=== PATIENT | male | born 1995 | race Hispanic/Latino ===

== ENCOUNTER 2024-11-28 15:57 | Inpatient (IN) | payer SELFPAY ==
[2024-11-28 17:06] LABS: #Basophils 0.06 10x3/uL (0.0-0.2); #Eosinophils 0.08 10x3/uL (0.0-0.7); #Monocytes 0.26 10x3/uL (0.11-0.59); #Neutrophils 6.18 10x3/uL (1.40-6.50); %Basophils 0.9 % (0.0-1.0); %Eosinophils 1.1 % (0.0-10.0); %Lymphocytes 5.8 % (21.0-51.0); %Monocytes 3.7 % (0.0-10.0); %Neutrophils 88.1 % (42.0-75.0); Hematocrit 43.1 % (42.0-52.0); Hemoglobin 14.5 g/dL (14.0-18.0); Mean Corpuscular Hemoglobin 27.5 pg (27.0-31.0); Mean Corpuscular Volume 81.6 fL (78.0-98.0); Platelet Count 124 10x3/uL (130-400); Red Blood Cell (RBC) Count 5.28 mill/uL (4.70-6.10); White Blood Cell (WBC) Count 7.02 10x3/uL (4.8-10.8)
[2024-11-28 17:24] LABS: ALT (SGPT) 160 U/L (Less than 45); AST (SGOT) 247 U/L (11-34); Albumin 3.9 g/dL (3.1-4.5); Alkaline Phosphatase 178 U/L (40-110); Anion Gap 22 mmol/L (10-20); BUN (Urea Nitrogen) 10 mg/dL (8.9-20.6); Bilirubin, Total 0.6 mg/dL (0.3-1.2); CK (CPK) 182 U/L (30-200); Calc. Creatinine Clearance 0 mL/min (70-130); Calcium 8.0 mg/dL (7.8-10.44); Carbon Dioxide 17 mmol/L (22-29); Chloride 98 mmol/L (98-107); Globulin 3.2 g/dL (2.4-3.5); Glucose 308 mg/dL (70-105); Lipase 14 U/L (8-78); Magnesium 1.8 mg/dL (1.6-2.6); Potassium 3.1 mmol/L (3.5-5.1); Sodium 134 mmol/L (136-145)
[2024-11-28 17:25] LABS: Acetaminophen Less than 10 mcg/mL (Less than 10); Salicylate Less than 8.0 mg/dL (Less than 8.0); Troponin I 0.016 ng/mL (< 0.028)
[2024-11-28 17:28] LABS: Actual Bicarbonate (HCO3v) 19.0 mEq/L (22-28); Base Excess -6.0 mEq/L (-2.0 to +3.0); Calcium, Ionized (venous) 1.08 mmol/L (1.16-1.32); Chloride (VBG) 98 mmol/L (98-106); Hematocrit-VBG 46 % (42.0-52.0); Hemoglobin (Hb) 15.7 g/dL (13.2-17.3); Potassium (VBG) 3.25 mmol/L (3.70-5.30); Sodium 139 mmol/L (133-146)
[2024-11-28] MEDS ORDERED: NS 0.9% w/ 20 MEQ KCL 1,000 ML ONE (18:43)
[2024-11-28] MEDS ORDERED: Magnesium 2 GM/50 ML BAG (IN WATER) ONE (18:43)
[2024-11-28 18:48] LABS: Bacteria/HPF 1+ HPF (None Seen); CAUTI Indications for Culture Alt mental st,lethar; Glucose, Urine (Dipstick) Greater than 1000 mg/dL (Negative); Leukocyte Negative Leu/uL (Negative); Protein, Urine (Dipstick) 300 mg/dL (Neg-Trace); Specific Gravity, Urine 1.027 (1.002-1.036)
[2024-11-28 18:49] LABS: Urine Culture Reflex No No
[2024-11-28 18:55] LABS: Cocaine Metabolite Screen Negative (Negative); THC/Cannabinoid Screen Negative (Negative); Tricyclic Screen Negative (Negative)
[2024-11-28] MEDS ORDERED: cefTRIAXone (ROCEPHIN) 1 GM VIAL ONE (19:31)
[2024-11-28] MEDS ORDERED: Ondansetron PF 4 MG/2 ML Vial IVP PRN (22:20)
[2024-11-28] MEDS ORDERED: Calcium Carbonate 500 MG ChewTAB PO PRN (22:20)
[2024-11-28] MEDS ORDERED: Dextrose 50% Abboject 50 ML SYRINGE SLOW IVP PRN (22:21)
[2024-11-28] MEDS ORDERED: Glucagon 1 MG/ML KIT IM PRN (22:21)
[2024-11-28] MEDS ORDERED: Electrolyte Replacement Protocol 1 EACH FS PRN (22:30)
[2024-11-29] MEDS: Insulin Glargine 30 UNITS/0.3 ML VIAL SC SCH ×2 (00:39→19:56)
[2024-11-29 00:51] VITALS: BMI 24.1
[2024-11-29 05:14] LABS: ALT (SGPT) 140 U/L (Less than 45); AST (SGOT) 176 U/L (11-34); Albumin 3.8 g/dL (3.1-4.5); Alkaline Phosphatase 156 U/L (40-110); Anion Gap 21 mmol/L (10-20); BUN (Urea Nitrogen) 7 mg/dL (8.9-20.6); Bilirubin, Total 0.9 mg/dL (0.3-1.2); Calc. Creatinine Clearance 181 mL/min (70-130); Calcium 7.8 mg/dL (7.8-10.44); Carbon Dioxide 19 mmol/L (22-29); Chloride 97 mmol/L (98-107); Globulin 2.9 g/dL (2.4-3.5); Glucose 266 mg/dL (70-105); Potassium 3.0 mmol/L (3.5-5.1); Sodium 134 mmol/L (136-145)
[2024-11-29 05:24] LABS: #Basophils 0.04 10x3/uL (0.0-0.2); #Eosinophils 0.05 10x3/uL (0.0-0.7); #Monocytes 0.46 10x3/uL (0.11-0.59); #Neutrophils 3.54 10x3/uL (1.40-6.50); %Basophils 0.8 % (0.0-1.0); %Eosinophils 1.0 % (0.0-10.0); %Lymphocytes 15.8 % (21.0-51.0); %Monocytes 9.4 % (0.0-10.0); %Neutrophils 72.6 % (42.0-75.0); Hematocrit 38.1 % (42.0-52.0); Hemoglobin 12.7 g/dL (14.0-18.0); Mean Corpuscular Hemoglobin 27.1 pg (27.0-31.0); Mean Corpuscular Volume 81.2 fL (78.0-98.0); Platelet Count 111 10x3/uL (130-400); Red Blood Cell (RBC) Count 4.69 mill/uL (4.70-6.10); White Blood Cell (WBC) Count 4.88 10x3/uL (4.8-10.8)
[2024-11-29] MEDS: Folic Acid 1 MG TAB PO SCH (09:16)
[2024-11-29] MEDS: Multivit, Therapeutic 1 TAB PO SCH (09:16)
[2024-11-29] MEDS: metFORMIN 500 MG TAB PO SCH (09:16)
[2024-11-29] MEDS: Potassium Chloride 20 MEQ in Premix 1 BAG IVPB SCH (09:26)
[2024-11-29] MEDS: Acetaminophen 325 MG TAB PO PRN (09:27)
[2024-11-30] MEDS: Ketorolac Tromethamine 30 MG (1 mL) VIAL ONE (02:00)
[2024-11-30] MEDS: Ketorolac Tromethamine 30 MG (1 mL) VIAL IVP SCH (02:48)
[2024-11-30 06:50] LABS: #Basophils 0.03 10x3/uL (0.0-0.2); #Eosinophils 0.12 10x3/uL (0.0-0.7); #Monocytes 0.56 10x3/uL (0.11-0.59); #Neutrophils 2.78 10x3/uL (1.40-6.50); %Basophils 0.7 % (0.0-1.0); %Eosinophils 2.7 % (0.0-10.0); %Lymphocytes 20.3 % (21.0-51.0); %Monocytes 12.8 % (0.0-10.0); %Neutrophils 63.3 % (42.0-75.0); Hematocrit 46.2 % (42.0-52.0); Hemoglobin 15.5 g/dL (14.0-18.0); Mean Corpuscular Hemoglobin 27.3 pg (27.0-31.0); Mean Corpuscular Volume 81.3 fL (78.0-98.0); Platelet Count 108 10x3/uL (130-400); Red Blood Cell (RBC) Count 5.68 mill/uL (4.70-6.10); White Blood Cell (WBC) Count 4.39 10x3/uL (4.8-10.8)
[2024-11-30 07:19] LABS: Anion Gap 21 mmol/L (10-20); BUN (Urea Nitrogen) 8 mg/dL (8.9-20.6); Calc. Creatinine Clearance 198 mL/min (70-130); Calcium 9.0 mg/dL (7.8-10.44); Carbon Dioxide 17 mmol/L (22-29); Chloride 97 mmol/L (98-107); Glucose 161 mg/dL (70-105); Potassium 3.4 mmol/L (3.5-5.1); Sodium 132 mmol/L (136-145)
[2024-11-30] MEDS: Pantoprazole 40 MG DR.TAB PO SCH (09:50)
[2024-11-30 11:18] VITALS: BP 131/79; TEMP 98.4
[2024-11-30] MEDS: Lidocaine 2% Viscous Solution 10 ML, Aluminum & Magnesium Hydroxide 30 ML SSW SCH (11:46)
[2024-12-01] MEDS ORDERED: Pantoprazole 40 MG DR.TAB PO SCH (09:00)
[2024-12-01] MEDS ORDERED: Thiamine 100 MG TAB PO SCH (22:30)
== END 2024-11-30 15:35 | disposition home or self-care (01) | DRG 897 ==
LOC: EDBD 15:57 → ERS 15:57 → 2NO 20:49 → OBSVTOIN 11-29 08:32
PROVIDERS: ADMIT Student in an Organized Health Care Education/Training Program; ATTEND Emergency Medicine
PROC: HZ2ZZZZ Detoxification Services for Substance Abuse Treatment (ICD-10-PCS; principal; 2024-11-29)
DX: F10.220 Alcohol dependence with intoxication, uncomplicated (principal); E87.29 Other acidosis; R74.01 Elevation of levels of liver transaminase levels; Y90.8 Blood alcohol level of 240 mg/100 ml or more; Z79.4 Long term (current) use of insulin; E11.65 Type 2 diabetes mellitus with hyperglycemia; E87.6 Hypokalemia
CPT/HCPCS: 36415; 36416; 70450; 71045; 74018; 80048; 80053; 80306; 80307; 81001; 82010; 82550; 82805; 83605; 83690; 83735; 84100; 84484; 85025; 87040; 87077; 87149; 93005; 96361; 96365; 96366; 96368; 96375; G0378; J0696; J1815; J1885; J2270; J3411; J3475; J3480; J7120

== ENCOUNTER 2024-12-10 16:17 | Emergency (ER) | payer SELFPAY ==
[~2024-12-10 16:17] MED LIST: Iopamidol 370 76% 100 ML VIAL ONE
[2024-12-10 16:51] LABS: #Basophils 0.07 10x3/uL (0.0-0.2); #Eosinophils 0.07 10x3/uL (0.0-0.7); #Monocytes 0.29 10x3/uL (0.11-0.59); #Neutrophils 2.83 10x3/uL (1.40-6.50); %Basophils 1.3 % (0.0-1.0); %Eosinophils 1.3 % (0.0-10.0); %Lymphocytes 40.0 % (21.0-51.0); %Monocytes 5.3 % (0.0-10.0); %Neutrophils 51.9 % (42.0-75.0); Hematocrit 41.1 % (42.0-52.0); Hemoglobin 14.1 g/dL (14.0-18.0); Mean Corpuscular Hemoglobin 28.0 pg (27.0-31.0); Mean Corpuscular Volume 81.7 fL (78.0-98.0); Platelet Count 192 10x3/uL (130-400); Red Blood Cell (RBC) Count 5.03 mill/uL (4.70-6.10); White Blood Cell (WBC) Count 5.45 10x3/uL (4.8-10.8)
[2024-12-10 17:10] LABS: Acetaminophen Less than 10 mcg/mL (Less than 10); Salicylate Less than 8.0 mg/dL (Less than 8.0)
[2024-12-10 17:15] LABS: ALT (SGPT) 183 U/L (Less than 45); AST (SGOT) 184 U/L (11-34); Albumin 4.4 g/dL (3.1-4.5); Alkaline Phosphatase 239 U/L (40-110); Anion Gap 31 mmol/L (10-20); BUN (Urea Nitrogen) 6 mg/dL (8.9-20.6); Bilirubin, Total 0.4 mg/dL (0.3-1.2); Calc. Creatinine Clearance 0 mL/min (70-130); Calcium 8.5 mg/dL (7.8-10.44); Carbon Dioxide 22 mmol/L (22-29); Chloride 87 mmol/L (98-107); Globulin 3.4 g/dL (2.4-3.5); Glucose 470 mg/dL (70-105); Lipase 12 U/L (8-78); Magnesium 2.1 mg/dL (1.6-2.6); Potassium 3.5 mmol/L (3.5-5.1); Sodium 136 mmol/L (136-145)
[2024-12-10] MEDS ORDERED: Multivitamins, Adult 10 ML, Thiamine HCl 100 MG, Folic Acid 1 MG in Dextrose 5 %-0.45 %... IV SCH (18:45)
[2024-12-10 19:26] LABS: Actual Bicarbonate (HCO3v) 24.5 mEq/L (22-28); Analyzer IN Cardio ER; Base Excess 0.5 mEq/L (-2.0 to +3.0); Calcium, Ionized (venous) 0.95 mmol/L (1.16-1.32); Chloride (VBG) 96 mmol/L (98-106); Hematocrit-VBG 44 % (42.0-52.0); Hemoglobin (Hb) 15.0 g/dL (13.2-17.3); Potassium (VBG) 3.20 mmol/L (3.70-5.30); Sodium 140 mmol/L (133-146)
[2024-12-10 20:11] LABS: Anion Gap 24 mmol/L (10-20); BUN (Urea Nitrogen) 5 mg/dL (8.9-20.6); Calc. Creatinine Clearance 0 mL/min (70-130); Calcium 7.6 mg/dL (7.8-10.44); Carbon Dioxide 22 mmol/L (22-29); Chloride 96 mmol/L (98-107); Glucose 256 mg/dL (70-105); Potassium 3.0 mmol/L (3.5-5.1); Sodium 139 mmol/L (136-145)
== END 2024-12-10 22:17 | disposition home or self-care (01) ==
LOC: ERS 16:17
DX: F10.129 Alcohol abuse with intoxication, unspecified (principal); R73.9 Hyperglycemia, unspecified; Y90.8 Blood alcohol level of 240 mg/100 ml or more; Z75.8 Other problems related to medical facilities and other health care
CPT/HCPCS: 36415; 36416; 71045; 74177; 80053; 80307; 82010; 82805; 83690; 83735; 84100; 85025; 93005; 94760; 96361; 96374; J1815; J3411; J7042; Q9967

== ENCOUNTER 2024-12-11 06:46 | Inpatient (IN) | payer SELFPAY ==
[2024-12-11 07:28] LABS: #Basophils 0.09 10x3/uL (0.0-0.2); #Eosinophils 0.06 10x3/uL (0.0-0.7); #Monocytes 0.31 10x3/uL (0.11-0.59); #Neutrophils 5.68 10x3/uL (1.40-6.50); %Basophils 1.3 % (0.0-1.0); %Eosinophils 0.8 % (0.0-10.0); %Lymphocytes 13.8 % (21.0-51.0); %Monocytes 4.3 % (0.0-10.0); %Neutrophils 79.5 % (42.0-75.0); Hematocrit 42.1 % (42.0-52.0); Hemoglobin 14.2 g/dL (14.0-18.0); Mean Corpuscular Hemoglobin 27.8 pg (27.0-31.0); Mean Corpuscular Volume 82.5 fL (78.0-98.0); Platelet Count 157 10x3/uL (130-400); Red Blood Cell (RBC) Count 5.10 mill/uL (4.70-6.10); White Blood Cell (WBC) Count 7.15 10x3/uL (4.8-10.8)
[2024-12-11 07:47] LABS: Acetaminophen Less than 10 mcg/mL (Less than 10); Lipase 11 U/L (8-78); Magnesium 1.6 mg/dL (1.6-2.6); Salicylate Less than 8.0 mg/dL (Less than 8.0)
[2024-12-11 07:50] LABS: Troponin I 0.011 ng/mL (< 0.028)
[2024-12-11 07:59] LABS: ALT (SGPT) 170 U/L (Less than 45); AST (SGOT) 173 U/L (11-34); Albumin 4.4 g/dL (3.1-4.5); Alkaline Phosphatase 168 U/L (40-110); Anion Gap 26 mmol/L (10-20); BUN (Urea Nitrogen) 8 mg/dL (8.9-20.6); Bilirubin, Total 0.8 mg/dL (0.3-1.2); CK (CPK) 196 U/L (30-200); Calc. Creatinine Clearance 0 mL/min (70-130); Calcium 8.0 mg/dL (7.8-10.44); Carbon Dioxide 21 mmol/L (22-29); Chloride 90 mmol/L (98-107); Globulin 3.6 g/dL (2.4-3.5); Glucose 269 mg/dL (70-105); Potassium 3.6 mmol/L (3.5-5.1); Sodium 133 mmol/L (136-145)
[2024-12-11 08:43] LABS: Actual Bicarbonate (HCO3v) 19.4 mEq/L (22-28); Base Excess -5.0 mEq/L (-2.0 to +3.0); Calcium, Ionized (venous) 0.92 mmol/L (1.16-1.32); Chloride (VBG) 93 mmol/L (98-106); Hematocrit-VBG 45 % (42.0-52.0); Hemoglobin (Hb) 15.4 g/dL (13.2-17.3); Potassium (VBG) 3.75 mmol/L (3.70-5.30); Sodium 136 mmol/L (133-146)
[2024-12-11] MEDS ORDERED: Ondansetron PF 4 MG/2 ML Vial IVP PRN (09:31)
[2024-12-11] MEDS ORDERED: Senokot S 8.6-50 MG TAB PO PRN (09:31)
[2024-12-11] MEDS ORDERED: Dextrose 50% Abboject 50 ML SYRINGE SLOW IVP PRN (09:36)
[2024-12-11] MEDS ORDERED: Glucagon 1 MG/ML KIT IM PRN (09:36)
[2024-12-11] MEDS ORDERED: Electrolyte Replacement Protocol 1 EACH FS SCH (09:45)
[2024-12-11 10:20] LABS: Cocaine Metabolite Screen Negative (Negative); THC/Cannabinoid Screen Negative (Negative); Tricyclic Screen Negative (Negative)
[2024-12-11 11:45] VITALS: BMI 25.3
[2024-12-11] MEDS: Pantoprazole 40 MG VIAL IVP SCH (11:48)
[2024-12-11] MEDS: NS 0.9% w/ 20 MEQ KCL 1,000 ML/1,000 ML BAG IV SCH (11:48)
[2024-12-11] MEDS: Magnesium 2 GM/50 ML(in water) 2 GM in Premix 1 BAG IVPB SCH (14:21)
[2024-12-11] MEDS: Calcium Carbonate 500 MG ChewTAB PO PRN (14:32)
[2024-12-11] MEDS: Insulin Glargine 30 UNITS/0.3 ML VIAL SC SCH (21:29)
[2024-12-11] MEDS: Acetaminophen 325 MG TAB PO PRN (21:30)
[2024-12-12 04:36] LABS: #Basophils 0.05 10x3/uL (0.0-0.2); #Eosinophils 0.11 10x3/uL (0.0-0.7); #Monocytes 0.33 10x3/uL (0.11-0.59); #Neutrophils 3.22 10x3/uL (1.40-6.50); %Basophils 1.0 % (0.0-1.0); %Eosinophils 2.3 % (0.0-10.0); %Lymphocytes 22.3 % (21.0-51.0); %Monocytes 6.9 % (0.0-10.0); %Neutrophils 67.3 % (42.0-75.0); Hematocrit 44.5 % (42.0-52.0); Hemoglobin 14.6 g/dL (14.0-18.0); Mean Corpuscular Hemoglobin 27.4 pg (27.0-31.0); Mean Corpuscular Volume 83.5 fL (78.0-98.0); Platelet Count 135 10x3/uL (130-400); Red Blood Cell (RBC) Count 5.33 mill/uL (4.70-6.10); White Blood Cell (WBC) Count 4.79 10x3/uL (4.8-10.8)
[2024-12-12 04:59] LABS: ALT (SGPT) 120 U/L (Less than 45); AST (SGOT) 120 U/L (11-34); Albumin 3.8 g/dL (3.1-4.5); Alkaline Phosphatase 139 U/L (40-110); Anion Gap 19 mmol/L (10-20); BUN (Urea Nitrogen) 10 mg/dL (8.9-20.6); Bilirubin, Total 0.7 mg/dL (0.3-1.2); Calc. Creatinine Clearance 201 mL/min (70-130); Calcium 7.6 mg/dL (7.8-10.44); Carbon Dioxide 19 mmol/L (22-29); Chloride 101 mmol/L (98-107); Globulin 3.1 g/dL (2.4-3.5); Glucose 177 mg/dL (70-105); Potassium 3.4 mmol/L (3.5-5.1); Sodium 136 mmol/L (136-145)
[2024-12-12] MEDS ORDERED: PNEUMOC 20-VAL CONJ-DIP CRM/PF 0.5 ML SYRINGE IM ONE (09:00)
[2024-12-12] MEDS: Multivit, Therapeutic 1 TAB PO SCH (09:05)
[2024-12-12] MEDS: Pantoprazole 40 MG DR.TAB PO SCH (09:05)
[2024-12-12] MEDS: Thiamine 100 MG TAB PO SCH (09:05)
[2024-12-12] MEDS: Folic Acid 1 MG TAB PO SCH (09:05)
[2024-12-12] MEDS: Insulin Glargine 30 UNITS/0.3 ML VIAL SC SCH ×2 (12:38→22:53)
[2024-12-13 04:40] LABS: ALT (SGPT) 116 U/L (Less than 45); AST (SGOT) 99 U/L (11-34); Albumin 4.2 g/dL (3.1-4.5); Alkaline Phosphatase 184 U/L (40-110); Anion Gap 18 mmol/L (10-20); BUN (Urea Nitrogen) 14 mg/dL (8.9-20.6); Bilirubin, Total 0.4 mg/dL (0.3-1.2); Calc. Creatinine Clearance 168 mL/min (70-130); Calcium 8.7 mg/dL (7.8-10.44); Carbon Dioxide 19 mmol/L (22-29); Chloride 99 mmol/L (98-107); Globulin 3.5 g/dL (2.4-3.5); Glucose 293 mg/dL (70-105); Potassium 4.2 mmol/L (3.5-5.1); Sodium 132 mmol/L (136-145)
[2024-12-13] MEDS: metFORMIN 500 MG TAB PO SCH (09:32)
[2024-12-13] MEDS: Insulin Glargine 30 UNITS/0.3 ML VIAL SC SCH (09:34)
[2024-12-13 10:43] VITALS: BP 118/81; TEMP 97.7
== END 2024-12-13 14:04 | disposition home or self-care (01) | DRG 897 ==
LOC: ERS 06:46 → PCU 09:40
PROVIDERS: ADMIT Family Medicine; ATTEND Family Medicine
DX: F10.239 Alcohol dependence with withdrawal, unspecified (principal); K70.10 Alcoholic hepatitis without ascites; Y90.8 Blood alcohol level of 240 mg/100 ml or more; K82.8 Other specified diseases of gallbladder; E11.65 Type 2 diabetes mellitus with hyperglycemia; E87.6 Hypokalemia; K76.0 Fatty (change of) liver, not elsewhere classified; R74.01 Elevation of levels of liver transaminase levels; Z71.41 Alcohol abuse counseling and surveillance of alcoholic
CPT/HCPCS: 36415; 36416; 70450; 71045; 80053; 80306; 80307; 82550; 82805; 83690; 83735; 84443; 84484; 85025; 93005; 96361; 96365; 96375; J1815; J2060; J2470; J3411; J3475; J3480; Q0162

== ENCOUNTER 2025-01-24 02:25 | Inpatient (IN) | payer OTHER, SELFPAY ==
[2025-01-24] MEDS ORDERED: Ondansetron PF 4 MG/2 ML Vial ONE ×2 (02:45→03:57)
[2025-01-24 03:13] LABS: #Basophils 0.04 10x3/uL (0.0-0.2); #Eosinophils 0.05 10x3/uL (0.0-0.7); #Monocytes 0.33 10x3/uL (0.11-0.59); #Neutrophils 2.63 10x3/uL (1.40-6.50); %Basophils 0.8 % (0.0-1.0); %Eosinophils 1.0 % (0.0-10.0); %Lymphocytes 37.0 % (21.0-51.0); %Monocytes 6.7 % (0.0-10.0); %Neutrophils 53.9 % (42.0-75.0); Hematocrit 45.6 % (42.0-52.0); Hemoglobin 14.7 g/dL (14.0-18.0); Mean Corpuscular Hemoglobin 28.4 pg (27.0-31.0); Mean Corpuscular Volume 88.0 fL (78.0-98.0); Platelet Count 154 10x3/uL (130-400); Red Blood Cell (RBC) Count 5.18 mill/uL (4.70-6.10); White Blood Cell (WBC) Count 4.89 10x3/uL (4.8-10.8)
[2025-01-24 03:32] LABS: ALT (SGPT) 128 U/L (Less than 45); AST (SGOT) 167 U/L (11-34); Albumin 4.2 g/dL (3.1-4.5); Alkaline Phosphatase 164 U/L (40-110); Anion Gap 34 mmol/L (10-20); BUN (Urea Nitrogen) 9 mg/dL (8.9-20.6); Bilirubin, Total 0.6 mg/dL (0.3-1.2); Calc. Creatinine Clearance 0 mL/min (70-130); Calcium 8.7 mg/dL (7.8-10.44); Carbon Dioxide 12 mmol/L (22-29); Chloride 92 mmol/L (98-107); Globulin 3.5 g/dL (2.4-3.5); Glucose 274 mg/dL (70-105); Lipase 17 U/L (8-78); Magnesium 1.7 mg/dL (1.6-2.6); Potassium 3.2 mmol/L (3.5-5.1); Sodium 135 mmol/L (136-145)
[2025-01-24 03:45] LABS: Base Excess -12.1 mEq/L (-2.0 to +3.0); Calcium, Ionized (venous) 1.09 mmol/L (1.16-1.32); Chloride (VBG) 96 mmol/L (98-106); Hematocrit-VBG 45 % (42.0-52.0); Hemoglobin (Hb) 15.3 g/dL (13.2-17.3); Potassium (VBG) 3.27 mmol/L (3.70-5.30); Sodium 142 mmol/L (133-146)
[2025-01-24 03:47] LABS: Actual Bicarbonate (HCO3v) 13.3 mEq/L (22-28)
[2025-01-24] MEDS ORDERED: INSULIN REGULAR IN 0.9 % NACL 100 ML ONE (03:57)
[2025-01-24] MEDS ORDERED: NS 0.9% w/ 20 MEQ KCL 1,000 ML ONE (04:04)
[2025-01-24] MEDS ORDERED: Calcium Carbonate 500 MG ChewTAB PO PRN (04:48)
[2025-01-24] MEDS ORDERED: NS 0.9% w/ 20 MEQ KCL 1,000 ML IV PRN ×2 (04:49)
[2025-01-24] MEDS ORDERED: D5 1/2 NS w/20 mEq KCL 1,000 ML IV PRN (04:49)
[2025-01-24 04:52] LABS: Acetaminophen Less than 10 mcg/mL (Less than 10); Salicylate Less than 8.0 mg/dL (Less than 8.0)
[2025-01-24] MEDS ORDERED: INSULIN REGULAR IN 0.9 % NACL 100 ML IVPB SCH (05:00)
[2025-01-24] MEDS ORDERED: Electrolyte Replacement Protocol 1 EACH FS PRN (05:00)
[2025-01-24] MEDS: Magnesium 2 GM/50 ML(in water) Premix IVPB SCH (05:53)
[2025-01-24 06:38] LABS: Anion Gap 24 mmol/L (10-20); BUN (Urea Nitrogen) 6 mg/dL (8.9-20.6); Calc. Creatinine Clearance 84 mL/min (70-130); Calcium 7.7 mg/dL (7.8-10.44); Carbon Dioxide 17 mmol/L (22-29); Chloride 99 mmol/L (98-107); Glucose 107 mg/dL (70-105); Magnesium 1.5 mg/dL (1.6-2.6); Potassium 3.6 mmol/L (3.5-5.1); Sodium 136 mmol/L (136-145)
[2025-01-24] MEDS: Dextrose 50% Abboject 50 ML SYRINGE SLOW IVP PRN (07:01)
[2025-01-24 09:27] LABS: Anion Gap 21 mmol/L (10-20); BUN (Urea Nitrogen) 8 mg/dL (8.9-20.6); Calc. Creatinine Clearance 82 mL/min (70-130); Calcium 7.7 mg/dL (7.8-10.44); Carbon Dioxide 16 mmol/L (22-29); Chloride 98 mmol/L (98-107); Glucose 192 mg/dL (70-105); Potassium 4.0 mmol/L (3.5-5.1); Sodium 131 mmol/L (136-145)
[2025-01-24] MEDS: Folic Acid 1 MG TAB PO SCH (09:40)
[2025-01-24] MEDS: Mupirocin 1 GM TUBE TP SCH (09:40)
[2025-01-24] MEDS: levETIRAcetam 500 MG TAB PO SCH (09:40)
[2025-01-24] MEDS: Multivit, Therapeutic 1 TAB PO SCH (09:40)
[2025-01-24] MEDS: Pantoprazole 40 MG VIAL IVP SCH (09:46)
[2025-01-24] MEDS ORDERED: Dextrose 50% Abboject 50 ML SYRINGE SLOW IVP PRN (10:00)
[2025-01-24] MEDS ORDERED: Glucagon 1 MG/ML KIT IM PRN (10:00)
[2025-01-24] MEDS: Pantoprazole 40 MG DR.TAB PO SCH (10:38)
[2025-01-24] MEDS ORDERED: Iopamidol-370 76% 500 ML MDV (1 ML CHARGE) ONE (11:09)
[2025-01-24] MEDS: Ondansetron PF 4 MG/2 ML Vial IVP PRN (12:32)
[2025-01-24 15:46] LABS: Anion Gap 20 mmol/L (10-20); BUN (Urea Nitrogen) 6 mg/dL (8.9-20.6); Calc. Creatinine Clearance 194 mL/min (70-130); Calcium 7.5 mg/dL (7.8-10.44); Carbon Dioxide 19 mmol/L (22-29); Chloride 97 mmol/L (98-107); Glucose 177 mg/dL (70-105); Potassium 3.9 mmol/L (3.5-5.1); Sodium 132 mmol/L (136-145)
[2025-01-24] MEDS: Acetaminophen 325 MG TAB PO PRN (17:20)
[2025-01-25 04:39] LABS: #Basophils Less than 0.03 10x3/uL (0.0-0.2); #Eosinophils 0.08 10x3/uL (0.0-0.7); #Monocytes 0.32 10x3/uL (0.11-0.59); #Neutrophils 1.79 10x3/uL (1.40-6.50); %Basophils 0.6 % (0.0-1.0); %Eosinophils 2.5 % (0.0-10.0); %Lymphocytes 31.7 % (21.0-51.0); %Monocytes 9.8 % (0.0-10.0); %Neutrophils 55.1 % (42.0-75.0); Hematocrit 43.6 % (42.0-52.0); Hemoglobin 13.8 g/dL (14.0-18.0); Mean Corpuscular Hemoglobin 28.2 pg (27.0-31.0); Mean Corpuscular Volume 89.0 fL (78.0-98.0); Platelet Count 131 10x3/uL (130-400); Red Blood Cell (RBC) Count 4.90 mill/uL (4.70-6.10); White Blood Cell (WBC) Count 3.25 10x3/uL (4.8-10.8)
[2025-01-25 05:04] LABS: ALT (SGPT) 95 U/L (Less than 45); AST (SGOT) 116 U/L (11-34); Albumin 3.7 g/dL (3.1-4.5); Alkaline Phosphatase 126 U/L (40-110); Anion Gap 21 mmol/L (10-20); BUN (Urea Nitrogen) 6 mg/dL (8.9-20.6); Bilirubin, Total 0.7 mg/dL (0.3-1.2); Calc. Creatinine Clearance 184 mL/min (70-130); Calcium 7.9 mg/dL (7.8-10.44); Carbon Dioxide 22 mmol/L (22-29); Chloride 96 mmol/L (98-107); Globulin 3.0 g/dL (2.4-3.5); Glucose 184 mg/dL (70-105); Magnesium 1.9 mg/dL (1.6-2.6); Potassium 3.7 mmol/L (3.5-5.1); Sodium 135 mmol/L (136-145)
[2025-01-25 05:17] VITALS: BMI 28.8
[2025-01-25] MEDS: Magnesium 2 GM/50 ML(in water) Premix IVPB SCH (05:56)
[2025-01-25 08:01] VITALS: BMI 28.8
[2025-01-25] MEDS ORDERED: Glycerin Adult Supp. (12 ct jar) PR PRN (08:21)
[2025-01-25] MEDS: Insulin Glargine 30 UNITS/0.3 ML VIAL SC SCH (09:18)
[2025-01-26 04:38] LABS: #Basophils 0.03 10x3/uL (0.0-0.2); #Eosinophils 0.10 10x3/uL (0.0-0.7); #Monocytes 0.46 10x3/uL (0.11-0.59); #Neutrophils 2.42 10x3/uL (1.40-6.50); %Basophils 0.7 % (0.0-1.0); %Eosinophils 2.4 % (0.0-10.0); %Lymphocytes 27.2 % (21.0-51.0); %Monocytes 11.1 % (0.0-10.0); %Neutrophils 58.1 % (42.0-75.0); Hematocrit 48.2 % (42.0-52.0); Hemoglobin 15.9 g/dL (14.0-18.0); Mean Corpuscular Hemoglobin 28.9 pg (27.0-31.0); Mean Corpuscular Volume 87.5 fL (78.0-98.0); Platelet Count 137 10x3/uL (130-400); Red Blood Cell (RBC) Count 5.51 mill/uL (4.70-6.10); White Blood Cell (WBC) Count 4.16 10x3/uL (4.8-10.8)
[2025-01-26 04:53] LABS: Anion Gap 20 mmol/L (10-20); BUN (Urea Nitrogen) 8 mg/dL (8.9-20.6); Calc. Creatinine Clearance 223 mL/min (70-130); Calcium 8.8 mg/dL (7.8-10.44); Carbon Dioxide 21 mmol/L (22-29); Chloride 101 mmol/L (98-107); Glucose 87 mg/dL (70-105); Potassium 3.1 mmol/L (3.5-5.1); Sodium 139 mmol/L (136-145)
[2025-01-26 15:45] LABS: Bacteria/HPF None Seen HPF (None Seen); CAUTI Indications for Culture Pelvic or flank pain; Glucose, Urine (Dipstick) Greater than 1000 mg/dL (Negative); Leukocyte Negative Leu/uL (Negative); Protein, Urine (Dipstick) 100 mg/dL (Neg-Trace); RBC/HPF 0-3 HPF (0-3); Specific Gravity, Urine 1.020 (1.002-1.036); WBC/HPF 0-3 HPF (0-3)
[2025-01-26 15:46] LABS: Urine Culture Reflex No No
[2025-01-26] MEDS: metFORMIN 500 MG TAB PO SCH (17:11)
[2025-01-26] MEDS: Senokot S 8.6-50 MG TAB PO SCH (20:27)
[2025-01-26] MEDS: Insulin Glargine 30 UNITS/0.3 ML VIAL SC SCH (20:27)
[2025-01-27 04:04] LABS: #Basophils 0.04 10x3/uL (0.0-0.2); #Eosinophils 0.12 10x3/uL (0.0-0.7); #Monocytes 0.78 10x3/uL (0.11-0.59); #Neutrophils 2.82 10x3/uL (1.40-6.50); %Basophils 0.7 % (0.0-1.0); %Eosinophils 2.2 % (0.0-10.0); %Lymphocytes 30.1 % (21.0-51.0); %Monocytes 14.4 % (0.0-10.0); %Neutrophils 52.0 % (42.0-75.0); Hematocrit 49.3 % (42.0-52.0); Hemoglobin 15.7 g/dL (14.0-18.0); Mean Corpuscular Hemoglobin 28.4 pg (27.0-31.0); Mean Corpuscular Volume 89.3 fL (78.0-98.0); Platelet Count 154 10x3/uL (130-400); Red Blood Cell (RBC) Count 5.52 mill/uL (4.70-6.10); White Blood Cell (WBC) Count 5.42 10x3/uL (4.8-10.8)
[2025-01-27 04:40] LABS: Anion Gap 16 mmol/L (10-20); BUN (Urea Nitrogen) 10 mg/dL (8.9-20.6); Calc. Creatinine Clearance 176 mL/min (70-130); Calcium 9.7 mg/dL (7.8-10.44); Carbon Dioxide 28 mmol/L (22-29); Chloride 98 mmol/L (98-107); Glucose 142 mg/dL (70-105); Magnesium 1.9 mg/dL (1.6-2.6); Potassium 3.9 mmol/L (3.5-5.1); Sodium 138 mmol/L (136-145)
[2025-01-27] MEDS: Thiamine 100 MG TAB PO SCH (04:56)
[2025-01-27] MEDS: Magnesium 2 GM/50 ML(in water) 2 GM in Premix 1 BAG IVPB SCH (08:50)
[2025-01-27 15:37] VITALS: BP 126/91; TEMP 98.1
[2025-01-27] MEDS ORDERED: Dicyclomine 10 MG CAP PO SCH (17:00)
== END 2025-01-27 16:05 | DRG 638 ==
LOC: EEVIPCON 02:25 → ERS 02:25 → ERHOLD 04:13 → CCU 05:27 → 2SE 01-25 23:40
PROVIDERS: ADMIT Student in an Organized Health Care Education/Training Program; ATTEND Hospitalist
DX: E11.10 Type 2 diabetes mellitus with ketoacidosis without coma (principal); F10.239 Alcohol dependence with withdrawal, unspecified; Z59.00 Homelessness unspecified; N17.9 Acute kidney failure, unspecified; E86.0 Dehydration; E87.6 Hypokalemia; R74.01 Elevation of levels of liver transaminase levels; R56.9 Unspecified convulsions; K70.10 Alcoholic hepatitis without ascites; K59.00 Constipation, unspecified; Z79.84 Long term (current) use of oral hypoglycemic drugs; Z79.4 Long term (current) use of insulin; Z79.899 Other long term (current) drug therapy
CPT/HCPCS: 36415; 36416; 70551; 74177; 76705; 80048; 80053; 80307; 81001; 82010; 82805; 83036; 83605; 83690; 83735; 84100; 85025; 93005; 95700; 95711; 95957; 96374; 96375; J1815; J2060; J2470; J3411; J3475; J3480; J7120; J7999; Q0162; Q9967